=== PATIENT | female | born 1980 | race African-American/Black ===

== ENCOUNTER 2020-08-10 22:15 | Emergency (ER) | payer MEDICAID, OTHER ==
[~2020-08-10] VITALS: Ht 160 cm; Wt 91.0 kg
[2020-08-10] MEDS ORDERED: IBUPROFEN 600MG TABLET PO ONE (23:15)
[2020-08-10 23:21] VITALS: BP 116/75
== END 2020-08-11 00:28 | disposition home or self-care (01) ==
LOC: ER 22:15
DX: M25.571 Pain in right ankle and joints of right foot (principal); M79.671 Pain in right foot
CPT/HCPCS: 73610; 73630; 81025; 99284